=== PATIENT | female | born 1955 | race Two or more races ===

== ENCOUNTER 2019-12-10 16:02 | Inpatient (IN) | payer BC, OTHER ==
[~2019-12-10] VITALS: Ht 170.2 cm; Wt 101.6 kg
[2019-12-10 16:31] LABS: BASOPHILS # (AUTO) 0.1 /CMM (0.0-0.2); BASOPHILS % (AUTO) 0.9 % (0.0-2.0); HEMATOCRIT 37 % (33-45); HEMOGLOBIN 11.8 g/dL (11.5-14.8); LYMPHOCYTES # (AUTO) 1.4 /CMM (0.8-4.8); LYMPHOCYTES % (AUTO) 24.9 % (20.0-44.0); MEAN CORPUSCULAR HGB CONC 32 g/dl (31.0-36.0); MEAN CORPUSCULAR VOLUME 80 fL (82-100); MONOCYTES # (AUTO) 0.4 /CMM (0.1-1.30); MONOCYTES % (AUTO) 7.5 % (2.0-12.0); NEUTROPHILS # (AUTO) 3.5 /CMM (1.8-8.9); NEUTROPHILS % (AUTO) 63.7 % (43.0-81.0); PLATELET COUNT (AUTO) 191 /CMM (150-450); RED BLOOD CELL COUNT(AUTO) 4.67 MIL/uL (4.0-5.2); WHITE BLOOD COUNT (AUTO) 5.5 K/uL (4.3-11.0)
[2019-12-10 16:41] LABS: CALCIUM, SERUM 8.9 mg/dL (8.5-10.1); CARBON DIOXIDE 28 mmol/L (21-32); CHLORIDE 106 mmol/L (98-107); CREATININE 1.3 mg/dL (0.6-1.3); GLUCOSE 123 mg/dL (74-106); POTASSIUM 4.5 mmol/L (3.5-5.1); SODIUM SERUM 142 mmol/L (136-145); UREA NITROGEN, BLOOD 22 mg/dL (7-18)
[2019-12-10 16:57] LABS: ALANINE AMINOTRANSFERASE 31 U/L (12-78); ALBUMIN 3.4 g/dL (3.4-5.0); ALKALINE PHOSPHATASE 102 U/L (46-116); ASPARTATE AMINOTRANSFERASE 18 U/L (15-37); B-TYPE NATRIURETIC PEPTIDE 66 PG/ML (0-125); BILIRUBIN,TOTAL 0.1 mg/dL (0.2-1.0); TOTAL PROTEIN, SERUM 7.9 g/dL (6.4-8.2)
[2019-12-10] MEDS ORDERED: INSU100V7 SQ (17:21)
[2019-12-10] MEDS ORDERED: MIRT7.5T10 PO (17:21)
[2019-12-10] MEDS ORDERED: GABA300C PO (17:21)
[2019-12-10] MEDS ORDERED: LISI10TA5 PO (17:21)
[2019-12-10] MEDS ORDERED: METF-442 PO (17:21)
--- NOTE | 2019-12-10 17:30 | NUR ---
Patient came in to the ER c/o chest pain and SOB since october. On room air, breathing evenyl and unlabored. Connected to the monitor and pulse ox. kept comfortable, will continue to monitor accoridngly.
--- NOTE | 2019-12-10 18:02 | NUR ---
GAVE MOVESHEET TO ADMITTING
--- NOTE | 2019-12-10 19:10 | NUR ---
report given to Eric WHIPPLE for mark.
--- NOTE | 2019-12-10 19:30 | NUR ---
received endorsement from SARABJIT Brown. Found pt awake, assisted to restroom, with steady gait. no s/s of acute distress or sob noted. will continue to monitor pt.
--- NOTE | 2019-12-10 21:47 | NUR ---
TRAIN OPERATOR, HOLGER, FROM HCP CALLED TO INFORM THAT SHE IS STILL LOOKING FOR HOSPITAL ROOM FOR THIS PT. SHE WAS ALSO INFORMED THAT THE PATIENT IS ALREADY ADMITTED AND ACCEPTED BY IN PATIENT MD D/T TIME IN ER.
[2019-12-10] MEDS ORDERED: ZOLPIDEM TARTRATE 5 MG TABLET PO PRN (22:00)
[2019-12-10] MEDS ORDERED: MAG HYDROX/AL HYDROX/SIMETH 30 ML UDC PO PRN (22:00)
[2019-12-10] MEDS ORDERED: HYDROCODONE/APAP 5/325MG 1 EACH TABLET PO PRN (22:00)
[2019-12-10] MEDS ORDERED: MAGNESIUM HYDROXIDE 30 ML UDC PO PRN (22:00)
[2019-12-10] MEDS ORDERED: ACETAMINOPHEN 325 MG TABLET PO PRN (22:00)
[2019-12-10] MEDS ORDERED: ONDANSETRON HCL/PF 4 MG/2 ML VIAL IVP PRN (22:00)
--- NOTE | 2019-12-10 22:11 | NUR ---
US TECH AT THE BED SIDE
--- NOTE | 2019-12-10 22:15 | NUR ---
report given to [facility] Gwendolyn WHIPPLE. will transport pt to 314-1 per acls protocol.
[2019-12-10 22:40] VITALS: BP 121/82
--- NOTE | 2019-12-10 22:53 | NUR ---
pt transferred safely to [facility] floor to room 314-1 per acls protocol.
--- NOTE | 2019-12-10 23:15 | NUR ---
TIE IN HAND NOTE: RECEIVE PATIENT FROM ER, NO ACUTE DISTRESS NOTED. BREATHING EVEN AND UNLABORED, NO SOB NOTED. IV TO LAC IN PLACE. ORIENTED PATIENT TO ROOM AND USE OF CALL LIGHT. TELE READING SR 65. BED LOCKED AND IN LOWEST POSITION, CALL LIGHT IN REACH. WILL CONTINUE TO MONITOR.
[2019-12-10] MEDS: ATORVASTATIN 40 MG TABLET PO SCH (23:58)
[2019-12-11 00:01] VITALS: BP 97/66
[2019-12-11] MEDS ORDERED: TRAZ-257 PO (01:01)
[2019-12-11] MEDS ORDERED: TRAZODONE 50 MG TABLET PO PRN (01:30)
[2019-12-11 04:25] VITALS: BP 127/78
[2019-12-11 04:29] LABS: EOSINOPHILS % (AUTO) 3.9 % (0.0-6.0); HEMATOCRIT 37 % (33-45); HEMOGLOBIN 11.6 g/dL (11.5-14.8); LYMPHOCYTES # (AUTO) 1.4 /CMM (0.8-4.8); LYMPHOCYTES % (AUTO) 28.3 % (20.0-44.0); MEAN CORPUSCULAR HGB CONC 31 g/dl (31.0-36.0); MEAN CORPUSCULAR VOLUME 79 fL (82-100); MONOCYTES # (AUTO) 0.4 /CMM (0.1-1.30); NEUTROPHILS # (AUTO) 2.9 /CMM (1.8-8.9); NEUTROPHILS % (AUTO) 58.8 % (43.0-81.0); PLATELET COUNT (AUTO) 187 /CMM (150-450); RED BLOOD CELL COUNT(AUTO) 4.71 MIL/uL (4.0-5.2)
[2019-12-11 04:42] LABS: CALCIUM, SERUM 9.1 mg/dL (8.5-10.1); MAGNESIUM 1.3 mg/dL (1.8-2.4); PHOSPHORUS 3.6 mg/dL (2.5-4.9); POTASSIUM 4.3 mmol/L (3.5-5.1)
--- NOTE | 2019-12-11 06:25 | NUR ---
HOSE STRIPPER NOTE: PATIENT RESTING, NO ACUTE DISTRESS NOTED. BREATHING EVEN AND UNLABORED, NO SOB NOTED. IV TO LAC IN PLACE. TELE READING SR 70. BED LOCKED AND IN LOWEST POSITION, CALL LIGHT IN REACH. WILL ENDORSE TO DAY NURSE TO CONTINUE WITH PLAN OF CARE.
--- NOTE | 2019-12-11 07:59 | NUR ---
RECEIVED PATIENT SLEEPING ON BED COMFORTABLY. DENIES PAIN AT THIS TIME. IN ROOM AIR. NO SHORTNESS OF BREATH NOTED.TELE READING OF SINUS RHYTHM 86. BED LOCKED IN LOWEST POSITION SIDE RAILS UP X2. CALL LIGHT WITH IN REACH. WILL CONTINUE TO MONITOR.
[2019-12-11 08:00] VITALS: BP 132/90
[2019-12-11] MEDS ORDERED: ASPIRIN 81 MG TAB.CHEW PO ONE (09:00)
--- NOTE | 2019-12-11 09:11 | NUR ---
TELE/RN NOTES DR. DORAN ORDER PATIENT CAN ALREADY EAT.
[2019-12-11] MEDS: Magnesium 1GM/D5W 100ML PREMIX 100 ML IV SCH ×2 (09:48→11:11)
[2019-12-11] MEDS: GABAPENTIN 300 MG CAPSULE PO SCH ×2 (11:05→17:24)
[2019-12-11] MEDS: METFORMIN 500 MG TABLET PO SCH ×2 (11:05→17:24)
[2019-12-11] MEDS: LISINOPRIL (10MG) 10 MG TABLET PO SCH (11:06)
[2019-12-11] MEDS: CEFTRIAXONE 1 G in IV D5W 50 ML IV SCH ×2 (11:54→13:12)
[2019-12-11] MEDS: AZITHROMYCIN 500 MG in IV D5W 250 ML IV SCH (14:01)
[2019-12-11 16:00] VITALS: BP_SYST 132; BP_SYST 134; BP_DIAS 87; BP_DIAS 90
--- NOTE | 2019-12-11 18:34 | NUR ---
MS/RN CLOSING NOTES PATIENT IS ON BED RESTING COMFORTABLY IN BED. NO COMPLAINED OF CHEST PAIN. NO SHORTNESS OF BREATH NOTED. KEPT PATIENT CLEAN AND DRY. PATIENT BREATHING EVEN AND UNLABORED. IV LINE ON LAC 18G PATENT AND INTACT. BED IS ON LOWEST POSITION AND LOCKED.SIDE RAILS UP X2.CALL LIGHT WITH IN REACH. ALL DUE PRESCRIBED MEDS WAS GIVEN. WILL ENDORSED TO BACK WEDGER.
--- NOTE | 2019-12-11 20:00 | NUR ---
MS RN NOTES RECEIVED PATIENT AWAKE IN BED WITH NO DISTRESS NOTED. CALL LIGHT WITHIN REACH. PERIPHERAL LINE INTACT AND PATENT. NO C/O PAIN OR DISCOMFORT. ENCOURAGED USE OF CALL LIGHT FOR ASSISTANCE AND VERBALIZED GOOD UNDERSTANDING. BED IN LOW LOCK SETTING. ROOM FREE OF CLUTTER AND BELONGINGS KEPT NEAR BEDSIDE. WILL CONTINUE TO MONITOR.
[2019-12-11 20:48] VITALS: BP 147/90
[2019-12-11] MEDS: MIRTAZAPINE 15 MG TABLET PO SCH (21:35)
[2019-12-11] MEDS: ATORVASTATIN 40 MG TABLET PO SCH (21:35)
[2019-12-11] MEDS: INSULIN GLARGINE, 100 UNIT/ML CARTRIDGE SQ SCH (21:40)
--- NOTE | 2019-12-12 06:43 | NUR ---
MS RN NOTES PATIENT ASLEEP IN BED WITH NO DISTRESS NOTED. CALL LIGHT WITHIN REACH. ALL DUE MEDS GIVEN ORDERED WITH NO ASE. NO FURTHER C/O PAIN OR DISCOMFORT. PERIPHERAL LINE INTACT AND PATENT. ROOM FREE OF CLUTTER AND BELONGINGS KEPT NEAR BEDSIDE. BED IN LOW LOCK SETTING WILL ENDORSE TO ONCOMING SHIFT.
[2019-12-12 06:51] LABS: ALANINE AMINOTRANSFERASE 27 U/L (12-78); ALBUMIN 3.3 g/dL (3.4-5.0); ALKALINE PHOSPHATASE 75 U/L (46-116); ASPARTATE AMINOTRANSFERASE 19 U/L (15-37); BILIRUBIN,TOTAL 0.2 mg/dL (0.2-1.0); CALCIUM, SERUM 9.4 mg/dL (8.5-10.1); CARBON DIOXIDE 29 mmol/L (21-32); CHLORIDE 106 mmol/L (98-107); CREATININE 1.1 mg/dL (0.6-1.3); GLUCOSE 158 mg/dL (74-106); MAGNESIUM 1.4 mg/dL (1.8-2.4); PHOSPHORUS 3.8 mg/dL (2.5-4.9); POTASSIUM 4.2 mmol/L (3.5-5.1); SODIUM SERUM 143 mmol/L (136-145); TOTAL PROTEIN, SERUM 7.7 g/dL (6.4-8.2); UREA NITROGEN, BLOOD 17 mg/dL (7-18)
[2019-12-12 06:58] LABS: BASOPHILS # (AUTO) 0.1 /CMM (0.0-0.2); BASOPHILS % (AUTO) 1.1 % (0.0-2.0); EOSINOPHILS % (AUTO) 3.7 % (0.0-6.0); HEMATOCRIT 39 % (33-45); HEMOGLOBIN 12.5 g/dL (11.5-14.8); LYMPHOCYTES # (AUTO) 1.4 /CMM (0.8-4.8); LYMPHOCYTES % (AUTO) 28.4 % (20.0-44.0); MEAN CORPUSCULAR HGB CONC 32 g/dl (31.0-36.0); MEAN CORPUSCULAR VOLUME 79 fL (82-100); MONOCYTES # (AUTO) 0.5 /CMM (0.1-1.30); MONOCYTES % (AUTO) 9.1 % (2.0-12.0); NEUTROPHILS # (AUTO) 2.9 /CMM (1.8-8.9); NEUTROPHILS % (AUTO) 57.7 % (43.0-81.0); PLATELET COUNT (AUTO) 189 /CMM (150-450); RED BLOOD CELL COUNT(AUTO) 4.94 MIL/uL (4.0-5.2); WHITE BLOOD COUNT (AUTO) 5.1 K/uL (4.3-11.0)
--- NOTE | 2019-12-12 07:00 | NUR ---
MS/RN Opening Note Patient received AO x 4, able to responds all stimuli. Pt does no c/o pain. Skin is warm to touch, kept clean/dry, intact IV site. Respiratory even and unlabored. Kept lower position of bed with elevated HOB. Will continue to monitor.
[2019-12-12 08:00] VITALS: BP 158/93
[2019-12-12] MEDS: Magnesium 1GM/D5W 100ML PREMIX 100 ML IV SCH ×2 (08:30→09:50)
[2019-12-12] MEDS: GABAPENTIN 300 MG CAPSULE PO SCH ×2 (08:30→17:33)
[2019-12-12] MEDS: METFORMIN 500 MG TABLET PO SCH ×2 (08:30→17:33)
[2019-12-12] MEDS: LISINOPRIL (10MG) 10 MG TABLET PO SCH (08:31)
[2019-12-12] MEDS: INDOMETHACIN 25 MG CAPSULE PO SCH ×2 (09:50→17:33)
[2019-12-12] MEDS: AZITHROMYCIN 500 MG in IV D5W 250 ML IV SCH (12:13)
[2019-12-12 16:00] VITALS: BP 140/85
--- NOTE | 2019-12-12 18:30 | NUR ---
MS/RN Closing Note Pt in bed, resting comfortably. Denies chest pain or any discomfort, skin is warm to touch, clean/dry, intact IV site. Call light within reach, will endorse to second shift supervisor.
--- NOTE | 2019-12-12 19:40 | NUR ---
RN OPENING NOTES [facility]. FOUND Pt AWAKE, RESTING IN BED, WATCHING TV. NO S/S OF ACUTE DISTRESS OR SOB NOTED. RESPIRATIONS EVEN AND UNLABORED WITH EQUAL CHEST RISE AND FALL. Pt IS A/OX4, VERBAL, ABLE TO MAKE NEEDS KNOWN. IV ACCESS ON LAC #18G, SL. SAFETY MEASURES IN PLACE. BED LOW, LOCKED, HOB ELEVATED, SIDE RAILS UP, CALL LIGHT AND BEDSIDE TABLE WITHIN REACH. WILL CONTINUE TO MONITOR Pt's CONDITION & SAFETY.
[2019-12-12 20:00] VITALS: BP 140/85
[2019-12-12 20:53] VITALS: BP 164/99
[2019-12-12] MEDS: MIRTAZAPINE 15 MG TABLET PO SCH (22:21)
[2019-12-12] MEDS: ATORVASTATIN 40 MG TABLET PO SCH (22:21)
[2019-12-12] MEDS: INSULIN GLARGINE, 100 UNIT/ML CARTRIDGE SQ SCH (22:26)
--- NOTE | 2019-12-12 22:28 | NUR ---
RN NOTES bg 144. administered scheduled dose of lantus via lt deltoid. snacks provided at bedside.
--- NOTE | 2019-12-13 01:55 | NUR ---
RN NOTES SPOKE WITH ONCALL HOSPITALIST NUBIA ON THE PHONE. INFORMED HIM THAT Pt WAS C/O HAVING A PANIC ATTACK & FELT LIKE SHE WAS GOING TO CHOKE ON HER SALIVA. RAIL DOWELING MACHINE OPERATOR GAVE VERBAL ORDER FOR X1 DOSE OF ATIVAN 0.5MG PO. WILL CARRY OUT ORDER.
[2019-12-13] MEDS ORDERED: LORAZEPAM 0.5 MG TABLET PO ONE (02:00)
--- NOTE | 2019-12-13 06:30 | NUR ---
RN NOTES AC ACCUCHECK BG 137. NO ADDITIONAL INSULIN COVERAGE WAS ORDERED. Pt HAS SCHEDULED METFORMIN @0900 & LANTUS 32UN @2200.
--- NOTE | 2019-12-13 06:55 | NUR ---
RN CLOSING NOTES NO SIGNIFICANT CHANGES IN Pt's CONDITION. ALL NEEDS MET AND ATTENDED TO. Pt IS RESTING IN BED COMFORTABLY. NO S/S OF ACUTE DISTRESS OR SOB NOTED DURING THE NIGHT. SAFETY MEASURES IN PLACE. BED LOW, LOCKED, HOB ELEVATED, SIDE RAILS UP, CALL LIGHT AND BEDSIDE TABLE WITHIN REACH. WILL ENDORSE TO DAYSHIFT RN FOR Pt's JENISE.
[2019-12-13] MEDS ORDERED: BLOOD SUGAR DIAGNOSTIC 1 EACH STRIP IN SCH (07:30)
[2019-12-13 08:00] VITALS: BP 131/74
[2019-12-13] MEDS ORDERED: ATOR40TA PO (08:25)
[2019-12-13] MEDS ORDERED: AZIT1PAC9 PO (08:25)
[2019-12-13] MEDS ORDERED: INDO-13 PO (08:25)
[2019-12-13] MEDS: INDOMETHACIN 25 MG CAPSULE PO SCH (08:50)
[2019-12-13] MEDS: METFORMIN 500 MG TABLET PO SCH (08:50)
[2019-12-13 08:51] VITALS: BP 131/74
[2019-12-13] MEDS: GABAPENTIN 300 MG CAPSULE PO SCH (08:51)
[2019-12-13] MEDS: LISINOPRIL (10MG) 10 MG TABLET PO SCH (08:51)
[2019-12-13] MEDS ORDERED: ALPRAZOLAM 0.25 MG TABLET PO ONE (09:00)
--- NOTE | 2019-12-13 11:00 | NUR ---
DISCHARGE NOTE PT D/C HOME.VSS. PT DISGRUNTLED, MAKING UNNECESSARY SCENE, STATING "THIS IS RIDICULOUS, WHAT DO YOU MEAN I HAVE TO WAIT FOR PATIENTS TO GET MEDS BEFORE YOU DISCHARGE ME, THIS IS AN OUTRAGE!". PT SELF REMOVED IV ACCESS. REFUSED TO MOVE ID BAND. PT ESCORTED OFF OF PROPERTY AND TAKEN HOME BY FAMILY MEMBER.
== END 2019-12-13 11:00 | disposition home or self-care (01) | DRG 194 ==
LOC: ER 16:06 → TELE 22:09 → MED 12-11 10:32
PROVIDERS: ADMIT Nurse Practitioner Acute Care; ATTEND Internal Medicine
DX: J15.9 Unspecified bacterial pneumonia (principal); D68.59 Other primary thrombophilia; E11.9 Type 2 diabetes mellitus without complications; F41.9 Anxiety disorder, unspecified; F32.9 Major depressive disorder, single episode, unspecified; D71 Functional disorders of polymorphonuclear neutrophils; E83.42 Hypomagnesemia; I10 Essential (primary) hypertension; I70.0 Atherosclerosis of aorta; R13.10 Dysphagia, unspecified; Z79.4 Long term (current) use of insulin; Z79.899 Other long term (current) drug therapy; Z85.43 Personal history of malignant neoplasm of ovary; Z90.5 Acquired absence of kidney; Z98.1 Arthrodesis status
CPT/HCPCS: 36415; 71045-TC; 71250-TC; 80048-TC; 80053-TC; 80061-TC; 80076-TC; 82962-TC; 83735-TC; 83880; 84100-TC; 84484-TC; 85025-TC; 85730-TC; 87081-TC; 93307-TC; G0378; J0456; J0696; J1815; J2405; J3475; J7050; J7060